=== PATIENT | female | born 1925 | race Caucasian/White ===

== ENCOUNTER → 2016-07-17 12:45 | Outpatient (CLI) | payer OTHER ==
--- NOTE | 2016-07-19 11:12 | EC ---
PATIENT:RAD ROBBINS DATE OF SERVICE: 07/17/16 SEX: F MEDICAL RECORD: [id number] DATE OF : [birth year] LOCATION:[facility] AGE OF PATIENT: 89 ADMISSION DATE: 07/17/16 REFERRING PHYSICIAN: INTERPRETING PHYSICIAN: JORDYN CURRY MD ECHOCARDIOGRAM REPORT ECHO CHARGES 4 ECHO COMPLETE CLINICAL DIAGNOSIS: ECHOCARDIOGRAPHIC MEASUREMENTS (adult normal given) AC root (d.<3.7cm) 2.8 LV Septum d (<1.2 cm> 1.3 Valve Excursion 1.8 LV Septum (systole) 1.7 Left Atria (s.<4.0cm> 5.0 LVPW d(<1.2cm) 1.2 RV (d.<2.3cm) 1.9 LVPW (sytole) 1.8 LV diastole(<5.6CM) 4.9 MV E-F(>70mm/sec) LV systole 2.4 LVOT Diameter 1.8 MV exc.(>10mm) Est.ejection fraction (50-75%) Pericardial Effusion N DOPPLER: LVIT A 67.0 E 183.0 LA RVSP 84.0 LVOT 107 AOP1/2T Asc. Ao 151 RVOT 66.0 RA PA 96.0 AV Gradient Peak 9.2 AV Mean 3.7 AV Area 1.6 MV Gradient Peak 16.1 MV Mean 3.7 MV Area COMMENTS: Collision Estimator: Derek SUOE General Utility Machine Operator:1 Dr. Curry TAPE# PACS DATE OF SERVICE: 07/17/2016 Echocardiogram FINDINGS: 1. Left ventricular chamber size is within normal limits. Left ventricular systolic function is normal. Overall ejection fraction estimated at 65%. 2. Left atrium is enlarged at 5.0 cm. Right atrium and right ventricular chamber sizes are as well mildly dilated. 3. Valvular structures: Aortic valve was structurally normal and the mitral ECHOCARDIOGRAM REPORT [id number] RAD ROBBINS valve has definite prolapse of the posterior mitral valve leaflet. The remaining valvular structures have normal structure and motion. 4. Doppler interrogation reveals severe mitral regurgitation, moderate to severe tricuspid regurgitation, markedly elevated pulmonary pressures at 84 mmHg. 5. No evidence of pericardial effusion or left ventricular thrombus. OVERALL IMPRESSION: Severe mitral regurgitation with definite prolapse of the mitral posterior leaflet. TRANSINT:[id number] Voice Confirmation ID: [id number] DOCUMENT ID: [id number] JORDYN CURRY MD at 1112 CC: [id number] DICTATION DATE: 07/18/16 1220 EXTRUSION PRESS OPERATOR: 07/18/162038 DEP CLI 07/17/16 [place] [id number] [place] [id number]
== END | disposition home or self-care (01) ==
LOC: D.ECHO 07-12 10:35
DX: I35.0 Nonrheumatic aortic (valve) stenosis (principal)

== ENCOUNTER 2017-02-18 13:04 | Inpatient (IN) | payer OTHER ==
[~2017-02-18] VITALS: Ht 160 cm; Wt 53.6 kg
[2017-02-18 15:01] LABS: APPEARANCE CLEAR (CLEAR); BILIRUBIN NEGATIVE (NEGATIVE); COLOR YELLOW (YELLOW); GLUCOSE NEGATIVE (NEGATIVE); KETONE NEGATIVE (NEGATIVE); LEUKOCYTE ESTERASE NEGATIVE (NEGATIVE); NITRITE NEGATIVE (NEGATIVE); PROTEIN NEGATIVE (NEGATIVE); SPECIFIC GRAVITY 1.015 (1.005-1.020); UROBILINOGEN NORMAL (NORMAL)
[2017-02-18 15:16] LABS: ALBUMIN 3.5 g/dL (3.4-5.0); ANION GAP 15.1 mmol/L (8-16); BILIRUBIN - TOTAL 0.3 mg/dL (0.2-1.3); CALCIUM 8.6 mg/dL (8.5-10.1); CARBON DIOXIDE 23.4 mmol/L (21.0-32.0); CREATININE - SERUM 0.8 mg/dL (0.6-1.3); POTASSIUM - SERUM 4.5 mmol/L (3.5-5.1); PROTEIN - SERUM 6.6 g/dL (6.4-8.2)
--- NOTE | 2017-02-18 17:00 | NUR ---
RECEIVED TO ROOM 2223 FROM ER VIA STRETCHER. SL TO L AC. BRUISING AND SKIN TEARS NOTED TO R SHOULDER AND ELBOW. COMPLAINING OF PAIN WITH MOVEMENT.
[2017-02-18] MEDS ORDERED: VITAMIN D2000 UNIT PO (17:03)
[2017-02-18] MEDS ORDERED: TYLENOL W/CODEI1 TAB PO (17:04)
[2017-02-18] MEDS ORDERED: VALIUM 2 MG TAB2 MG PO (17:06)
[2017-02-18 17:13] VITALS: BP 97/45; Ht 160 cm; Wt 53.6 kg
[2017-02-18] MEDS ORDERED: LISINOPRIL5 MG PO (17:22)
--- NOTE | 2017-02-18 17:30 | NUR ---
ORIENTOR MORPHINE 1-10-10 SETUP FOR PAIN CONTROL.
--- NOTE | 2017-02-18 19:46 | NUR ---
REC'D.IN BED ALERT ORIENTED X3.SPLINT INTACT TO RT.WRIST.REFUSES SLING TO RIGHT SHOULDER. BRUISING SMALL AMT. SWELLING PRESENT STERI-STRIPS TO POSTERIOR RT. ARM. ICE PACKS APPLIED TO SHOULDER AND RT. WRIST REQUESTED. WILL CONTINUE TO MONITOR FOR ANY CHGES. IN NEUROVASCULAR STATUS AND FOLLOW CURRENT PLAN OF CARE
[2017-02-18 20:00] VITALS: BP 135/55
[2017-02-19] VITALS: BP 114/49
--- NOTE | 2017-02-19 05:00 | NUR ---
EYES CLOSED RESPIRATIONS WITH EASE AND UNLABORED.
[2017-02-19 05:48] LABS: BASOPHILS 0.2 % (0-2); EOSINOPHILS 0 % (0-7); HEMATOCRIT 25.5 % (36.0-48.0); HEMOGLOBIN 8.3 g/dL (12-16); IMMATURE GRANULOCYTES 0.2 % (0-5); LYMPHOCYTES 18.8 % (15-50); MCHC 32.5 g/dL (31.0-37.0); MCV 92.1 fL (80.0-100.0); MEAN PLATELET VOLUME 9.8 fL (7.4-10.4); MONOCYTES 11.6 % (2-11); NEUTROPHILS 69.2 % (40-80); PLATELET COUNT 219 10x3/uL (130-400); RBC 2.77 10x6/uL (4.00-5.40); RDW 13.9 % (11.5-14.5); WBC 5.4 10x3/uL (4.8-10.8)
[2017-02-19 06:38] LABS: ANION GAP 13.8 mmol/L (8-16); BILIRUBIN - TOTAL 0.6 mg/dL (0.2-1.3); CALCIUM 8.2 mg/dL (8.5-10.1); CREATININE - SERUM 0.9 mg/dL (0.6-1.3); POTASSIUM - SERUM 4.8 mmol/L (3.5-5.1); PROTEIN - SERUM 5.9 g/dL (6.4-8.2)
--- NOTE | 2017-02-19 08:29 | NUR ---
PT AOX4 RESP EVEN AND NONLABORED PT DENIES NEEDS AT THIS TIME IV TO LEFT AC PATENT AND INTACT THIS TIME SRX2 BED AT LOWEST SETTING BED AT LOWEST SETTING CALL LIGHT WITHIN REACH WILL CONTINUE TO MONITOR
[2017-02-19 08:48] VITALS: BP 145/63
--- NOTE | 2017-02-19 09:04 | NUR ---
Patient Name: RAD ROBBINS Admission Status: ER Accout number: [id number] Admission Date: 02-18-2017 : 1925 Admission Diagnosis: Attending: MARLON MCGOWAN Current LOS: 1 Anticipated DC Date: 02-21-2017 Planned Disposition: Home Primary Insurance: [employer] GOLD CHOICE PFFS Discharge Planning Comments: CM MET WITH PATIENT REGARDING D/C NEEDS AND PLANS. PATIENT STATED SHE LIVES ALONE AND HER FRIEND (JOSE) WILL BE STAYING WITH HER AT DISCHARGE AND WILL DRIVE HER HOME. PATIENT STATED THERE ARE NO STEPS OR STAIRS AT HER HOME. PATIENT IS INDEPENDENT WITH HER CARE AND HAS NO DME AT HOME. PATIENTS PCP IS DR. NASH AND PHARMACY IS [facility] ON [facility]. PATIENT DOES NOT WANT HOME HEALTH AT THIS TIME. CM WILL CONTINUE TO FOLLOW PATIENT WITH D/C NEEDS AND PLANS. PCP [facility]- [phone] JOSE (FRIEND) [phone] Pipe Blanks Cut Off Saw Operator: Hermelinda Camacho Is the patient Alert and Oriented? Yes 0 * How many steps to enter\exit or inside your home? 0 0 * PCP DR. NASH 0 * Pharmacy [facility] 0 * Preadmission Environment Home Alone 0 * ADLs Independent 0 * Equipment None 0 * List name and contact numbers for known caregivers / representatives who currently or will assist patient after discharge: JOSE RAMÍREZ (FRIEND) [phone] * Community resources currently utilized None 0 * Additional services required to return to the preadmission environment? Yes 0 * Can the patient safely return to the preadmission environment? Yes 0 * Has this patient been hospitalized within the prior 30 days at any hospital? No 0 Grand Total: 0
[2017-02-19 12:33] VITALS: BP 135/60
[2017-02-19 16:58] VITALS: BP 122/46
[2017-02-19 20:00] VITALS: BP 126/45
--- NOTE | 2017-02-19 20:00 | NUR ---
ASSESSMENT PER FLOWSHEET. IV PATENT LEFT HAND OF NS AT 30CC'S/HR NATIONAL EXPANSION RECRUITER OF MORPHINE WITH SETTINGS AT 1MG Q10MIN W/10MG Q4H L/O. SITE CLEAR. SR UP X2 CALL LIGHT WITHIN REACH. HOB UP 30 DEGREES. PLACED ON BEDPAN. VOIDS FREELY. SPLINT YAYA WRAP TO RT ARM IN PLACE. SPLINT TO RT WRIST INTACT. DRESSING TO RT ELBOW SKIN TEAR.
--- NOTE | 2017-02-19 21:00 | NUR ---
MEDS GIVEN PER MAR.
--- NOTE | 2017-02-19 22:30 | NUR ---
PLACED ON BEDPAN VOIDS WELL.
[2017-02-20] VITALS: BP 133/52
--- NOTE | 2017-02-20 | NUR ---
NPO FOR SURGERY IN AM.
--- NOTE | 2017-02-20 04:34 | NUR ---
EYES CLOSED RESPIRATIONS WITH EASE AND UNLABORED. NPO FOR SURGERY THIS AM.
[2017-02-20 05:41] LABS: BASOPHILS 0.1 % (0-2); HEMATOCRIT 24.5 % (36.0-48.0); IMMATURE GRANULOCYTES 0.1 % (0-5); LYMPHOCYTES 14.5 % (15-50); MCH 29.6 pg (26.0-34.0); MCHC 32.7 g/dL (31.0-37.0); MCV 90.7 fL (80.0-100.0); MEAN PLATELET VOLUME 9.9 fL (7.4-10.4); MONOCYTES 10.3 % (2-11); PLATELET COUNT 209 10x3/uL (130-400); RDW 13.9 % (11.5-14.5)
[2017-02-20 05:51] LABS: WBC 6.9 10x3/uL (4.8-10.8)
[2017-02-20 06:16] LABS: ALBUMIN 2.6 g/dL (3.4-5.0); ALKALINE PHOSPHATASE 59 U/L (46-116); ALT (SGPT) 14 U/L (10-68); CALC OSMOLALITY 279 mosm/kg (275-300); CALCIUM 8.3 mg/dL (8.5-10.1); CARBON DIOXIDE 22.5 mmol/L (21.0-32.0); CHLORIDE - SERUM 107 mmol/L (98-107); CREATININE - SERUM 0.7 mg/dL (0.6-1.3); GLUCOSE 117 mg/dL (74-106); POTASSIUM - SERUM 4.1 mmol/L (3.5-5.1); SODIUM 139 mmol/L (136-145); UREA NITROGEN 15 mg/dL (7-18); eGFR NON AFRICAN AMERICAN 83 mL/min (90-120)
--- NOTE | 2017-02-20 07:30 | NUR ---
RECIEVED PT DURING WALKING ROUNDS. PT RESTING IN BED WITH COMPLAINTS OF PAIN OF A 7 ON A SCALE OF 1-10. GREETING CARD WRITER IN USE. ASSESSMENT DONE PER FLOWSHEET. BED IN LOW POSITION AND CALL LIGHT WITHIN REACH. WILL CONTINUE TO MONITOR.
[2017-02-20 09:39] VITALS: BP 133/57
--- NOTE | 2017-02-20 11:15 | NUR ---
20G IV SITED TO PTS LEFT FOREARM FOR BLOOD TRANSFUSION. IV FLUSHED WITH 10CC OF NS AND SECURED WITH OP-SITE AND TAPE. BED IN LOW POSITION AND SAYDA LIGHT WITHIN REACH, WILL CONTINUE TO MONITOR.
--- NOTE | 2017-02-20 11:20 | NUR ---
PT TAKEN FOR SURGERY AT THIS TIME, BLOOD TO BE TRANSFUSED IN SURGERY.
[2017-02-20 12:57] VITALS: BP 142/57
--- NOTE | 2017-02-20 15:00 | NUR ---
PATIENT RECEIVED 2U OF BLOOD IN OR. POST OP H & H ORDERED PER ANESTHESIA.
[2017-02-20 15:14] VITALS: BP 142/58
--- NOTE | 2017-02-20 15:15 | NUR ---
REC FROM PACU, DROWSY, AWAKENS TO VERBAL STIMULI APPROP. RT. ARM IN SLING WITH DRESSING TO RT. SHOULDER CDI, SPLINT TO RT. WRIST, FINGERS PINK WARM AND DRY, CAP REFILL < 3 SEC, ABLE TO WIGGLE FINGERS UPON COMMAND. VSS. PAIN 0. BED LOW CL IN REACH WILL CONT. TO MONITOR.
[2017-02-20 15:19] LABS: HEMATOCRIT 33.8 % (36.0-48.0); HEMOGLOBIN 11.2 g/dL (12-16)
--- NOTE | 2017-02-20 19:00 | NUR ---
REPORT RECEIVED AND CARE OF PT ASSUMED. PT LYING IN SEMI LOPES'S POSITION WITH EYES CLOSED AND UNLABORED BREATHING. IV IN LEFT WRIST PATENT WITH 1/2 NS INFUSING AT 50 ML / HR. AEROSPACE QUALITY ENGINEER WITH MORPHINE IN USE FOR PAIN CONTROL. RIGHT SHOULDER IN SLING AND DRESSING CLEAN AND DRY. WILL MONITOR CLOSELY FOR NEEDS.
[2017-02-20 20:00] VITALS: BP 182/80
--- NOTE | 2017-02-20 21:15 | NUR ---
HS MEDICATIONS GIVEN. WILL CONTINUE TO MONITOR FOR NEEDS.
--- NOTE | 2017-02-20 23:00 | NUR ---
PT REQUESTING BACK MASSAGE BUT DECLINED WHEN TOLD THAT WE DO NOT HAVE MASSAGE LOTION.
--- NOTE | 2017-02-21 00:28 | NUR ---
PT C/O INDIGESTION / HEARTBURN. GAVE ZOFRAN IVP PER PRN ORDER AND A CARTON OF MILK TO SIP TO NEUTRALIZE ACID CAUSING STOMACH UPSET.
[2017-02-21 04:00] VITALS: BP 136/65
[2017-02-21 05:31] LABS: BASOPHILS 0 % (0-2); EOSINOPHILS 0 % (0-7); HEMATOCRIT 29.5 % (36.0-48.0); HEMOGLOBIN 10.1 g/dL (12-16); IMMATURE GRANULOCYTES 0.2 % (0-5); LYMPHOCYTES 6.2 % (15-50); MCH 30.4 pg (26.0-34.0); MCHC 34.2 g/dL (31.0-37.0); MCV 88.9 fL (80.0-100.0); MONOCYTES 7.5 % (2-11); NEUTROPHILS 86.1 % (40-80); PLATELET COUNT 184 10x3/uL (130-400); RDW 13.9 % (11.5-14.5)
[2017-02-21 05:34] LABS: RBC 3.32 10x6/uL (4.00-5.40); WBC 8.7 10x3/uL (4.8-10.8)
[2017-02-21 05:54] LABS: ALBUMIN 2.3 g/dL (3.4-5.0); ALKALINE PHOSPHATASE 50 U/L (46-116); ALT (SGPT) 14 U/L (10-68); CALC OSMOLALITY 275 mosm/kg (275-300); CALCIUM 7.7 mg/dL (8.5-10.1); CARBON DIOXIDE 20.8 mmol/L (21.0-32.0); CHLORIDE - SERUM 106 mmol/L (98-107); CREATININE - SERUM 0.7 mg/dL (0.6-1.3); GLUCOSE 129 mg/dL (74-106); POTASSIUM - SERUM 3.9 mmol/L (3.5-5.1); PROTEIN - SERUM 5.5 g/dL (6.4-8.2); SODIUM 137 mmol/L (136-145); UREA NITROGEN 12 mg/dL (7-18); eGFR NON AFRICAN AMERICAN 83 mL/min (90-120)
--- NOTE | 2017-02-21 07:30 | NUR ---
RECIEVED PT DURING WALKING ROUNDS. PT RESTING IN BED WITH COMPLAINTS OF PAIN OF A 6 ON A SCALE OF 1-10. TRACTOR OPERATOR LASER LEVELING IN USE. ASSESSMENT DONE PER FLOWSHEET. BED IN LOW POSITION AND CALL LIGHT WITHIN REACH. WILL CONTINUE TO MONITOR.
[2017-02-21 08:08] VITALS: BP 128/60
--- NOTE | 2017-02-21 10:59 | OP ---
PATIENT NAME: RAD ROBBINS MEDICAL RECORD: [id number] :[birth year] LOCATION:[id number] ADMISSION DATE:02/18/17 SURGEON: EDYTA LANCE MD DATE OF OPERATION: 02/20/2017 PREOPERATIVE DIAGNOSES: 1. Displaced right proximal humerus fracture. 2. Displaced right distal radius fracture. POSTOPERATIVE DIAGNOSES: 1. Displaced right proximal humerus fracture. 2. Displaced right distal radius fracture. PROCEDURES: 1. Open reduction and internal fixation of right proximal humerus fracture. 2. Open reduction and internal fixation of right distal radius fracture. SURGEON: Edyta Lance MD. ANESTHESIA: General. INTRAOPERATIVE COMPLICATIONS: None. SUMMARY OF PATHOLOGIC FINDINGS: The patient's fracture had driven almost subcutaneously at the time of the fracture, it did lacerate the cephalic vein, which was no longer bleeding. There was a substantial amount of muscle damage. The patient is very osteoporotic. Distal radius fracture was reduced and plated to anatomic rastafarian. The carpal tunnel was released given the amount of contusion seen in the median nerve. OPERATIVE SUMMARY IN DETAIL: After obtaining the appropriate preoperative orthopedic surgery consent as well as anesthetic consultation, evaluation and clearance, the patient was brought to the operating room and placed on the operating table in supine position. After general laryngeal mask was administered, the patient was placed in the beach chair position. All pressure points were well padded. She was held firmly to the operating table using the vacuum pack suction system. Right upper extremity and shoulder were then prepped and draped in routine sterile fashion. The arm was held in the Trimano arm holding device. Deltopectoral incision was taken down. The cephalic vein was noted. The clavipectoral fascia was incised. The fracture was noted and reduced directly under fluoroscopic visualization to an anatomic position. A Errol periarticular plate was then placed. Serial and sequential drill and fill was done with a combination of compression and locking screws. This resulted in anatomic fixation of the proximal humerus. Fluoroscopy showed that there were no screws protruding in the articular surface. Final radiographs were submitted for radiologist review. The wound was copiously irrigated and closed with #1 Vicryl followed by 2-0 Vicryl and skin adam. Sterile dressings were applied. At this point, the patient was re-placed to a supine position. The right upper extremity was prepared with a tourniquet about the proximal aspect. Right upper extremity was then prepped and draped in routine sterile fashion. Closed reduction maneuver was performed showing that they could be realigned nicely. At this point, the arm was elevated and exsanguinated, tourniquet inflated to 250 mmHg. Volar approach of Meir was utilized, taken down to the carpal tunnel. The flexor carpal radialis was utilized as landmarks. Flap was created. Median nerve was identified and OPERATIVE REPORT [id number] RAD ROBBINS retracted and protected throughout the case. Fracture was identified. Reduction maneuver again was performed. The small distal right AxSOS plate from [employer] was utilized. Again, serial and sequential drill and fill was done while holding the fracture with provisional K-wires as well as bone clamps. After all screws were put into place, final radiographs were submitted for radiologist review. Again, the wound was copiously irrigated and closed with 2-0 Vicryl followed by 4-0 Prolene in running fashion. Sterile dressings were applied. Volar splint was applied. The patient was awakened, taken to recovery room in stable condition. All final needle and sponge counts were correct. TRANSINT:[id number] Voice Confirmation ID: [id number] DOCUMENT ID: [id number] NATALIO JACOBS, EDYTA CHRISTIAN at 1059 CC: [id number] DICTATION DATE: 02/20/17 1421 QA AUTOMATION ENGINEER: 02/20/17 1534 ADM IN [place] [id number] [place] [address]
[2017-02-21 12:40] VITALS: BP 179/65
--- NOTE | 2017-02-21 15:03 | NUR ---
CM REASSESSMENT NOTE: PATIENT CHOSE [facility] WHEN DISCHARGED. PATIENT SIGNED THE LAVELL FORM AND FACE SHEET AND H& P HAS BEEN SENT. ORDER AND PT NOTES NEED TO BE SENT AT DISCHARGE.
[2017-02-21 16:00] VITALS: BP 110/52
--- NOTE | 2017-02-21 19:00 | NUR ---
REPORT RECEIVED AND CARE OF PT ASSUMED. PT LYING IN SUPINE POSITION WITH EYES CLOSED, AND HUNTER TRAPPER BUTTON IN HAND. IV IN LEFT WRIST PATENT WITH 1/2 NS INFUSING AT 50 ML / HR. HUNTER TRAPPER / MORPHINE IN USE FOR PAIN CONTROL. DRESSING ON RIGHT ARM CLEAN AND DRY. SLING IN PLACE ON RIGHT ARM. WILL MONITOR FOR NEEDS.
[2017-02-21 20:00] VITALS: BP 104/47
--- NOTE | 2017-02-21 20:15 | NUR ---
ASSISTED PT TO USE BEDPAN TO VOID.
--- NOTE | 2017-02-21 20:59 | NUR ---
HS MEDICATIONS GIVEN. WILL CONTINUE TO MONITOR FOR NEEDS.
--- NOTE | 2017-02-22 01:26 | NUR ---
PT RESTING IN SUPINE POSITION WITH EASY RESPIRATIONS. SIDE RAILS UP X2 FOR SAFETY.
[2017-02-22 04:00] VITALS: BP 114/56
[2017-02-22 05:44] LABS: BASOPHILS 0 % (0-2); EOSINOPHILS 3.2 % (0-7); HEMATOCRIT 28.8 % (36.0-48.0); HEMOGLOBIN 9.6 g/dL (12-16); IMMATURE GRANULOCYTES 0.3 % (0-5); LYMPHOCYTES 17.3 % (15-50); MCH 29.8 pg (26.0-34.0); MCHC 33.3 g/dL (31.0-37.0); MCV 89.4 fL (80.0-100.0); MEAN PLATELET VOLUME 9.9 fL (7.4-10.4); MONOCYTES 10.4 % (2-11); NEUTROPHILS 68.8 % (40-80); PLATELET COUNT 205 10x3/uL (130-400); RBC 3.22 10x6/uL (4.00-5.40); RDW 14.2 % (11.5-14.5); WBC 7.8 10x3/uL (4.8-10.8)
[2017-02-22 05:52] LABS: ALBUMIN 2.2 g/dL (3.4-5.0); ANION GAP 12.5 mmol/L (8-16); BILIRUBIN - TOTAL 0.6 mg/dL (0.2-1.3); CARBON DIOXIDE 22.4 mmol/L (21.0-32.0); POTASSIUM - SERUM 3.9 mmol/L (3.5-5.1); PROTEIN - SERUM 5.7 g/dL (6.4-8.2)
[2017-02-22 05:53] LABS: CREATININE - SERUM 0.9 mg/dL (0.6-1.3)
--- NOTE | 2017-02-22 07:05 | NUR ---
PATIENT IN BED WITH IV INTACT. NO COMPLAINTS OR SIGNS OF DISTRESS. EYES CLOSED RESTING QUIETLY. CALL LIGHT WITHIN REACH.
--- NOTE | 2017-02-22 07:25 | NUR ---
REPORT RECEIVED FROM MANAGER COSMETIC NURSE. CALL LIGHT IN REACH.
[2017-02-22 08:00] VITALS: BP 111/55
--- NOTE | 2017-02-22 09:41 | NUR ---
ASSESSMENT COMPLETED. NORCO PO PER C/O PAIN OF 7. PLACED ON AND OFF BEDPAN WITH 200 CC URINE. ANCEF IVPB. INCENTTIVE SPIROMETER GIVEN TO PATIENT AND EXPLAINED USAGE WITH RETURN DEMONSTRATION. SCDs TO BLE. PASSWORD AND EMERGENCY CONTACT INFO OBTAINED AND PLACED IN COMPUTER. CALL LIGHT IN REACH. WILL CONTINUE WITH PLAN OF CARE.
--- NOTE | 2017-02-22 11:32 | NUR ---
STATES PAIN IS BETTER BUT STILL SAYS IT IS A 7. STATES IT WENT DOWN BUT WENT UP AFTER PHYSICAL THERAPY. WILL SL IV AND DC SENIOR TREASURY ANALYST PER ORDER.
--- NOTE | 2017-02-22 11:36 | NUR ---
CONVERSION MAN DC'D PER ORDER.
[2017-02-22 12:36] VITALS: BP 128/66
--- NOTE | 2017-02-22 12:50 | NUR ---
ASSISTED ON AND OFF BEDPAN AGAIN. REPOSITIONED IN BED AN HEAD RAISED. PLACED BEDSIDE TABLE IN FRONT OF PATIENT SO THAT SHE CAN TOLERATE HER MEAL.
--- NOTE | 2017-02-22 14:20 | NUR ---
RESTING WITH EYES CLOSED. RESP EVEN AND UNLABORED. CALL LIGHT IN REACH.
[2017-02-22 16:09] VITALS: BP 122/52
--- NOTE | 2017-02-22 16:50 | NUR ---
PAIN OF 6. WILL WAIT UNTIL LATER TO TAKE PAIN PILL.
--- NOTE | 2017-02-22 18:56 | NUR ---
NO CHANGES IN INITIAL ASSESSMENT. NORCO PO. ON AND OFF BEDPAN. CALL LIGHT IN REACH. WILL CONTINUE WITH PLAN OF CARE. ALRM IS ON. SCDs TO BLE.
[2017-02-22 19:00] VITALS: BP 129/52
[2017-02-22 20:00] VITALS: BP 134/54
--- NOTE | 2017-02-22 21:22 | NUR ---
PT WANTS HS MEDICATIONS WHEN SHE CAN HAVE NEXT PAIN MED AT 2230.
--- NOTE | 2017-02-22 22:16 | NUR ---
HS MEDICATIONS GIVEN TO INCLUDE NORCO PER PT REQUEST FOR PAIN. WILL CONTINUE TO MONITOR FOR NEEDS.
[2017-02-23] VITALS: BP 135/57
[2017-02-23 03:30] VITALS: BP 150/65
[2017-02-23 05:20] LABS: BASOPHILS 0.2 % (0-2); EOSINOPHILS 6.5 % (0-7); HEMATOCRIT 29.3 % (36.0-48.0); HEMOGLOBIN 9.9 g/dL (12-16); IMMATURE GRANULOCYTES 0.2 % (0-5); LYMPHOCYTES 16.8 % (15-50); MCH 30.6 pg (26.0-34.0); MCHC 33.8 g/dL (31.0-37.0); MCV 90.4 fL (80.0-100.0); MEAN PLATELET VOLUME 9.5 fL (7.4-10.4); MONOCYTES 11.6 % (2-11); NEUTROPHILS 64.7 % (40-80); PLATELET COUNT 218 10x3/uL (130-400); RBC 3.24 10x6/uL (4.00-5.40); RDW 13.8 % (11.5-14.5)
[2017-02-23 05:21] LABS: WBC 5.4 10x3/uL (4.8-10.8)
[2017-02-23 05:49] LABS: ANION GAP 10.5 mmol/L (8-16); BILIRUBIN - TOTAL 0.67 mg/dL (0.2-1.3); CALCIUM 7.7 mg/dL (8.5-10.1); CARBON DIOXIDE 25.8 mmol/L (21.0-32.0); CREATININE - SERUM 0.9 mg/dL (0.6-1.3); POTASSIUM - SERUM 4.3 mmol/L (3.5-5.1); PROTEIN - SERUM 5.5 g/dL (6.4-8.2)
--- NOTE | 2017-02-23 07:47 | NUR ---
REPORT RECEIVED FROM ASSISTANT FAMILY TEACHER NURSE. CALL LIGHT IN REACH.
--- NOTE | 2017-02-23 08:31 | NUR ---
ASSESSMENT COMPLETED. PLACED ON AND OFF BEDPAN. SCDs TO BLE ALFREDO MAT ALARM ON. CALL LIGHT IN REACH. WILL CONTINUE WITH PLAN OF CARE.
[2017-02-23 09:36] VITALS: BP 119/56
--- NOTE | 2017-02-23 10:46 | NUR ---
NORCO PO PER C/O PAIN. NEW BEDPAN TAKEN IN ROOM FOR URINE SAMPLE. CALL LIGHT IN REACH.
--- NOTE | 2017-02-23 11:15 | NUR ---
[employer]CIAL [employer] REP PLACED PATIENT ON CLEAN BEDPAN AND SAMPLE COLLECTED AND SENT TO LAB FOR UA.
[2017-02-23 12:34] LABS: APPEARANCE CLEAR (CLEAR); BILIRUBIN NEGATIVE (NEGATIVE); COLOR YELLOW (YELLOW); GLUCOSE NEGATIVE (NEGATIVE); KETONE NEGATIVE (NEGATIVE); LEUKOCYTE ESTERASE NEGATIVE (NEGATIVE); NITRITE NEGATIVE (NEGATIVE); PROTEIN NEGATIVE (NEGATIVE); UROBILINOGEN NORMAL (NORMAL)
--- NOTE | 2017-02-23 13:50 | NUR ---
HAD BEEN REFUSING TO WALK IN HALLWAY OR SIT IN CHAIRS. INSTRUCTED PATIENT THAT SHE WOULD HAVE TO GET UP AND WALK BEFORE SHE GETS PNEUMONIA. VERBALIZED UNDERSTANDING. AMBULATED 250 FEET IN HALLWAY WITH PHYSICAL THERAPY. NOW SITTING IN CHAIR.
--- NOTE | 2017-02-23 15:01 | NUR ---
REQUESTING PAIN MED. [facility]. CALL LIGHT IN REACH.
[2017-02-23 15:51] VITALS: BP 132/62
--- NOTE | 2017-02-23 17:40 | NUR ---
UP IN ROOM WALKING BY HERSELF WITH NO ASSISTANCE.
--- NOTE | 2017-02-23 18:01 | NUR ---
NO CHANGES IN INITIAL ASSESSMENT. CALL LIGHT IN REACH. SCDs OFF AT THIS TIME. SITTING IN CHAIR. WILL CONTINUE WITH PLAN OF CARE.
--- NOTE | 2017-02-23 19:00 | NUR ---
REPORT RECEIVED AND CARE OF PT ASSUMED. PT LYING IN SUPINE POSITION WITH EYES CLOSED. IV IN LEFT WRIST AND FA SL. DRESSING ON RIGHT ARM AND SHOULDER CLEAN AND DRY. SLING IN USE ON RIGHT ARM. WILL MONITOR CLOSELY FOR NEEDS.
--- NOTE | 2017-02-23 19:52 | NUR ---
GAVE NORCO PER PT REQUEST FOR PAIN, PER PRN ORDER.
[2017-02-23 20:00] VITALS: BP 133/71
--- NOTE | 2017-02-23 22:13 | NUR ---
HS MEDICATIONS GIVEN. WILL CONTINUE TO MONITOR FOR NEEDS.
--- NOTE | 2017-02-23 23:40 | NUR ---
GAVE WARM BLANKET PER REQUEST. WILL CONTINUE TO MONITOR FOR NEEDS.
[2017-02-24] VITALS: BP 147/66
--- NOTE | 2017-02-24 00:57 | NUR ---
ASSISTED UP TO USE RESTROOM. GAVE NORCO PO PER REQUEST FOR PAIN. WILL CONTINUE TO MONITOR FOR NEEDS.
[2017-02-24 04:00] VITALS: BP 144/69
[2017-02-24 05:38] LABS: BASOPHILS 0.2 % (0-2); EOSINOPHILS 4.5 % (0-7); HEMATOCRIT 28.4 % (36.0-48.0); HEMOGLOBIN 9.4 g/dL (12-16); IMMATURE GRANULOCYTES 0.2 % (0-5); LYMPHOCYTES 24.3 % (15-50); MCH 30.1 pg (26.0-34.0); MCHC 33.1 g/dL (31.0-37.0); MEAN PLATELET VOLUME 9.6 fL (7.4-10.4); MONOCYTES 12.1 % (2-11); NEUTROPHILS 58.7 % (40-80); PLATELET COUNT 239 10x3/uL (130-400); RBC 3.12 10x6/uL (4.00-5.40); WBC 4.9 10x3/uL (4.8-10.8)
[2017-02-24 05:54] LABS: ANION GAP 9.1 mmol/L (8-16); CALCIUM 7.8 mg/dL (8.5-10.1); CARBON DIOXIDE 26.7 mmol/L (21.0-32.0); CREATININE - SERUM 0.8 mg/dL (0.6-1.3); POTASSIUM - SERUM 3.8 mmol/L (3.5-5.1)
--- NOTE | 2017-02-24 07:30 | NUR ---
RECIEVED PT DURING WALKING ROUNDS, PT RESTING IN BED WITH NO COMPLAINTS OF PAIN OR DISCOMFORT AT THIS TIME. ASSESSMENT DONE PER FLOWSHEET. BED IN LOW POSITION AND CALL LIGHT WITHIN REACH. WILL CONTINUE TO MONITOR.
[2017-02-24] MEDS ORDERED: HYDROCODONE-APA1 TAB PO (08:13)
--- NOTE | 2017-02-24 08:44 | NUR ---
CM REASSESSMENT NOTE: PATIENT IS DISCHARGING HOME TODAY/FRIEND DRIVING HER. PATIENT WILL HAVE [facility] AND THEY HAVE BEEN NOTIFIED OF DISCHARGE. PATIENT STATED SHE HAS NO OTHER NEEDS FOR DISCHARGE.
[2017-02-24 08:54] VITALS: BP 121/57
--- NOTE | 2017-02-24 14:45 | NUR ---
d/c home with family at this time. iv d/c with cath tip intact. denies questions regarding d/c.
== END 2017-02-24 14:45 | disposition home health service (06) | DRG 493 ==
LOC: D.ER 13:04 → D.MS 16:02
PROVIDERS: Anesthesiology; Family Medicine; Orthopaedic Surgery; Physician Assistant; ADMIT Emergency Medicine
PROC: 0PSC04Z Reposition Right Humeral Head with Internal Fixation Device, Open Approach (ICD-10-PCS; principal; 2017-02-20 11:45)
PROC: 0PSH04Z Reposition Right Radius with Internal Fixation Device, Open Approach (ICD-10-PCS; 2017-02-20 11:45)
DX: S42.291A Other displaced fracture of upper end of right humerus, initial encounter for closed fracture (principal); S52.501A Unspecified fracture of the lower end of right radius, initial encounter for closed fracture; S52.601A Unspecified fracture of lower end of right ulna, initial encounter for closed fracture; D62 Acute posthemorrhagic anemia; V03.09XA Pedestrian with other conveyance injured in collision with car, pick-up truck or van in nontraffic accident, initial encounter; Y92.481 Parking lot as the place of occurrence of the external cause; M81.0 Age-related osteoporosis without current pathological fracture; I34.0 Nonrheumatic mitral (valve) insufficiency